=== PATIENT | male | born 1965 | race Caucasian/White ===

== ENCOUNTER 2019-04-29 01:03 | Emergency (ER) | payer MEDICAID ==
[~2019-04-29] VITALS: Ht 175.3 cm; Wt 87.5 kg
[2019-04-29 01:11] VITALS: Ht 175.3 cm; Wt 87.5 kg
[2019-04-29 02:45] LABS: CARBON DIOXIDE 24.6 mmol/L (21-32); CHLORIDE SERUM 99 mmol/L (98-107); CREATININE SERUM 0.9 mg/dL (0.7-1.3); GFR1 > 60 mL/min; GLUCOSE SERUM 255 mg/dL (74-106); POTASSIUM SERUM 3.9 mmol/L (3.5-5.1); SODIUM SERUM 138 mmol/L (136-145)
[2019-04-29 02:46] LABS: BASOPHIL % 0.1 % (0-2); PLATELET COUNT 199 x10^3mcL (130-400); RED CELL DISTRIBUTION WIDTH 13.9 % (11.5-14.5)
[2019-04-29 02:49] LABS: ALBUMIN 3.7 g/dL (3.4-5.0); ALKALINE PHOSPHATASE 76 U/L (46-116); ALT/SGPT 41 U/L (16-63); AST/SGOT 16 U/L (15-37); BILIRUBIN TOTAL 0.54 mg/dL (0.20-1.00); LIPASE 65 IU/L (73-393); TOTAL PROTEIN, SERUM 7.7 g/dL (6.4-8.2)
[2019-04-29 05:10] VITALS: BP 129/76
== END 2019-04-29 05:10 | disposition home or self-care (01) ==
LOC: ED 01:03
PROVIDERS: Emergency Medicine
DX: K52.9 Noninfective gastroenteritis and colitis, unspecified (principal); R11.10 Vomiting, unspecified; E11.65 Type 2 diabetes mellitus with hyperglycemia; I10 Essential (primary) hypertension
CPT/HCPCS: J2270; J2405; J7030

== ENCOUNTER 2019-10-23 18:49 | Emergency (ER) | payer MEDICAID ==
[~2019-10-23] VITALS: Ht 172.7 cm; Wt 89.4 kg
[2019-10-23 19:11] VITALS: Ht 172.7 cm; Wt 89.4 kg
[2019-10-23 20:43] LABS: CALCIUM 9.7 mg/dL (8.5-10.1); CHLORIDE SERUM 103 mmol/L (98-107); CREATININE SERUM 0.8 mg/dL (0.7-1.3); GFR1 > 60 mL/min; GLUCOSE SERUM 200 mg/dL (74-106); POTASSIUM SERUM 4.1 mmol/L (3.5-5.1); SODIUM SERUM 139 mmol/L (136-145)
[2019-10-23 20:49] LABS: BASOPHIL % 0.5 % (0-2); PLATELET COUNT 204 x10^3mcL (130-400); RED CELL DISTRIBUTION WIDTH 12.3 % (11.5-14.5)
[2019-10-23 20:54] LABS: ALKALINE PHOSPHATASE 76 U/L (46-116); ALT/SGPT 108 U/L (16-63); AST/SGOT 64 U/L (15-37); BILIRUBIN TOTAL 0.3 mg/dL (0.20-1.00)
[2019-10-24 00:19] VITALS: BP 137/86
== END 2019-10-24 00:25 | disposition home or self-care (01) ==
LOC: ED 18:49
PROVIDERS: Emergency Medicine
DX: I10 Essential (primary) hypertension (principal); R42 Dizziness and giddiness; E11.9 Type 2 diabetes mellitus without complications
CPT/HCPCS: 36415